=== PATIENT | female | born 1940 | race Caucasian/White ===

== ENCOUNTER 2020-04-13 17:38 | Emergency (ER) | payer MEDICARE, OTHER ==
--- NOTE | 2020-04-13 17:56 | CT ---
Head CT without contrast 04/13/2020: COMPARISON: None HISTORY: Dysarthria, right-sided weakness, Acute stroke protocol TECHNIQUE: Axial CT imaging at 5 mm intervals from vertex through skull base without contrast FINDINGS: The visualized paranasal sinuses and mastoid air cells are well-aerated. No displaced angela rial fracture. No intracranial hemorrhage, midline shift, mass effect, or ventricular enlargement. Periventricular h ypodensity suggests small vessel disease. IMPRESSION: No intracranial hemorrhage. Results called to Dr. Chase at 5:53 PM 04/13/2020
[2020-04-13 17:57] LABS: INR-International Normal Ratio 0.9; Prothrombin Time 12.3 sec (12.0-14.7)
[2020-04-13 17:59] LABS: PTT 21.8 sec (22.9-36.1)
[2020-04-13] MEDS ORDERED: Dextrose 50% Abboject 50 ML SYRINGE ONE (18:03)
[2020-04-13 18:06] LABS: Band 3 % (5-11); Eosinophils 6 % (0-10); Hemoglobin 13.2 g/dL (12.0-16.0); Lymphocytes 15 % (21-51); MDiff Complete? YES; Mean Corpuscular HGB CONC 31.6 g/dL (32.0-36.0); Mean Corpuscular Hemoglobin 29.7 pg (27.0-31.0); Mean Corpuscular Volume 93.9 fL (78.0-98.0); Mean Platelet Volume 8.8 fL (7.4-10.4); Monocytes 3 % (0-10); Neutrophil 38 % (42-75); Platelet Count 178 thou/uL (130-400); Platelet Morphology Comment Appears Adequate; RBC Distribution Width 12.6 % (11.5-14.5); RBC Morphology Normal; Reactive Lymphocytes 35 % (0-10); Red Blood Cell (RBC) Count 4.43 mill/uL (4.20-5.40); White Blood Cell (WBC) Count 5.9 thou/uL (4.8-10.8)
[2020-04-13 18:07] LABS: ALT (SGPT) 13 U/L (8-55); AST (SGOT) 22 U/L (5-34); Albumin 3.8 g/dL (3.4-4.8); Alkaline Phosphatase 84 U/L (40-110); Anion Gap 14 mmol/L (10-20); BUN (Urea Nitrogen) 13 mg/dL (9.8-20.1); Bilirubin, Total 0.5 mg/dL (0.2-1.2); Calc. Creatinine Clearance 0 mL/min (70-130); Calcium 10.9 mg/dL (7.8-10.44); Carbon Dioxide 23 mmol/L (23-31); Chloride 106 mmol/L (98-107); Estimated GFR-MDRD 58; Globulin 3.6 g/dL (2.4-3.5); Glucose 77 mg/dL (83-110); Potassium 3.8 mmol/L (3.5-5.1); Protein, Total 7.4 g/dL (6.0-8.3); Sodium 139 mmol/L (136-145)
[2020-04-13 18:21] LABS: Base Excess-Venous 1.2 mmol/L (-2.0 to 3.0); CO2 Tension (PvCO2) 36.3 mmHg (40.0-50.0); Calcium, Ionized 1.48 mmol/L (1.15-1.33); Chloride 111 mmol/L (98-107); Hemoglobin - Calc 14.9 g/dL (12.0-16.0); Potassium 3.9 mmol/L (3.5-5.1); Sodium 142 mmol/L (138-145); T. Carbon Dioxide 26.1 mmol/L (22.0-28.0); vO2 Saturation-calc 99.8 % (60.0-85.0)
[2020-04-13] MEDS ORDERED: Aspirin 300 MG Suppository ONE (18:28)
[2020-04-13] MEDS ORDERED: diphenhydrAMINE 50 MG/ML VIAL ONE (18:36)
[2020-04-13] MEDS ORDERED: Famotidine In NaCl 20 mg/50 ml Premix Bag ONE (18:36)
[2020-04-13] MEDS ORDERED: methylPREDNISolone Sod Succ/PF 125 MG/2 ML VIAL ONE (18:37)
== END 2020-04-13 18:55 | disposition short-term general hospital (02) ==
LOC: MADERS 17:38
DX: I63.9 Cerebral infarction, unspecified (principal); R53.1 Weakness; R47.81 Slurred speech; R29.724 NIHSS score 24
CPT/HCPCS: 36416; 70450; 80053; 82330; 82803; 85025; 85610; 85730; 93005; 96374; 96375; J1200; J2930

== ENCOUNTER 2022-04-18 08:01 | Emergency (ER) | payer MEDICARE, OTHER ==
[2022-04-18] MEDS ORDERED: Methocarbamol 500 MG TAB ONE (08:39)
[2022-04-18] MEDS ORDERED: Morphine 2 MG/ML VIAL ONE (08:39)
== END 2022-04-18 08:58 | disposition home or self-care (01) ==
LOC: MADERS 08:01
DX: S39.012A Strain of muscle, fascia and tendon of lower back, initial encounter (principal); E05.90 Thyrotoxicosis, unspecified without thyrotoxic crisis or storm; Z79.899 Other long term (current) drug therapy; X58.XXXA Exposure to other specified factors, initial encounter
CPT/HCPCS: 96372; 99283; J2270

== ENCOUNTER 2023-04-17 10:15 | Emergency (ER) | payer MEDICARE, OTHER ==
[2023-04-17] MEDS ORDERED: Orphenadrine Citrate 60 MG/2 ML VIAL ONE (11:44)
[2023-04-17] MEDS ORDERED: Ketorolac Tromethamine 30 MG/ML VIAL ONE (11:44)
[2023-04-17 12:10] LABS: Bacteria/HPF Rare-Few HPF (None Seen); Bilirubin Negative (Negative); Blood, Urine Negative (Negative); Clarity Slightly Cloudy (Clear); Glucose, Urine (Dipstick) Negative (Negative); Ketone, Urine Negative (Negative); Leukocyte Negative (Negative); Nitrite Negative (Negative); Protein, Urine (Dipstick) Negative (Neg-Trace); RBC/HPF 0-3 HPF (0-3); WBC/HPF 0-3 HPF (0-3)
== END 2023-04-17 12:35 | disposition home or self-care (01) ==
LOC: MADERS 10:15
DX: S39.012A Strain of muscle, fascia and tendon of lower back, initial encounter (principal); M62.830 Muscle spasm of back; E03.9 Hypothyroidism, unspecified; I48.91 Unspecified atrial fibrillation; Z79.01 Long term (current) use of anticoagulants; X50.1XXA Overexertion from prolonged static or awkward postures, initial encounter
CPT/HCPCS: 72020; 81001; 96372; J1885; J2360

== ENCOUNTER 2024-03-12 16:11 | Emergency (ER) | payer MEDICARE, OTHER ==
[2024-03-12] MEDS ORDERED: Morphine 2 MG/ML VIAL ONE (17:08)
== END 2024-03-12 17:40 | disposition home or self-care (01) ==
LOC: MADERS 16:11
DX: M62.830 Muscle spasm of back (principal); E03.9 Hypothyroidism, unspecified; I48.91 Unspecified atrial fibrillation; Z79.01 Long term (current) use of anticoagulants
CPT/HCPCS: 96372; 99283; J2272

== ENCOUNTER 2024-09-04 15:39 | Emergency (ER) | payer MEDICARE, OTHER ==
[2024-09-04] MEDS ORDERED: Sodium Chloride 0.9% 1,000 ML ONE (16:28)
[2024-09-04 16:53] LABS: #Eosinophils 0.1 thou/uL (0.0-0.7); #Monocytes 0.4 thou/uL (0.11-0.59); #Neutrophils 5.4 thou/uL (1.40-6.50); %Basophils 0.7 % (0.0-1.0); %Eosinophils 0.8 % (0.0-10.0); %Lymphocytes 14.9 % (21.0-51.0); %Monocytes 5.5 % (0.0-10.0); %Neutrophils 78.2 % (42.0-75.0); Hematocrit 35.6 % (36.0-47.0); Hemoglobin 11.1 g/dL (12.0-16.0); Mean Corpuscular HGB CONC 31.1 g/dL (32.0-36.0); Mean Corpuscular Hemoglobin 28.9 pg (27.0-31.0); Mean Platelet Volume 8.6 fL (7.4-10.4); Platelet Count 204 10x3/uL (130-400); RBC Distribution Width 12.3 % (11.5-14.5); Red Blood Cell (RBC) Count 3.83 mill/uL (4.20-5.40); White Blood Cell (WBC) Count 6.9 10x3/uL (4.8-10.8)
[2024-09-04 17:10] LABS: ALT (SGPT) 8 U/L (Less than 34); AST (SGOT) 19 U/L (11-34); Albumin 3.2 g/dL (3.1-4.5); Alkaline Phosphatase 64 U/L (40-110); Anion Gap 15 mmol/L (10-20); BUN (Urea Nitrogen) 11 mg/dL (9.8-20.1); Bilirubin, Total 0.5 mg/dL (0.3-1.2); Calc. Creatinine Clearance 0 mL/min (70-130); Carbon Dioxide 19 mmol/L (23-31); Chloride 105 mmol/L (98-107); Estimated GFR 52; Globulin 3.8 g/dL (2.4-3.5); Glucose 110 mg/dL (83-110); Potassium 4.8 mmol/L (3.5-5.1); Sodium 134 mmol/L (136-145)
[2024-09-04 17:11] LABS: Troponin I Less than 0.010 ng/mL (< 0.028)
== END 2024-09-04 17:55 | disposition home or self-care (01) ==
LOC: MADERS 15:39
DX: E86.0 Dehydration (principal); R55 Syncope and collapse; I10 Essential (primary) hypertension; Z79.01 Long term (current) use of anticoagulants; Z79.890 Hormone replacement therapy; Z79.899 Other long term (current) drug therapy
CPT/HCPCS: 71045; 80053; 83605; 83880; 84443; 84484; 85025; 93005; 96360; J7030